=== PATIENT | female | born 1945 | race Caucasian/White ===

== ENCOUNTER 2020-02-14 13:23 | Outpatient (CLI) | payer MEDICARE, SELFPAY ==
--- NOTE | ~2020-02-14 | MM_ITS ---
CORRECTED REPORT DELMER ADDED. 02/14/20 EXAMINATION: MM screening [facility] w [facility] HISTORY: Screening TECHNIQUE: Craniocaudal and mediolateral oblique 3-D tomosynthesis images were obtained and synthetic 2-D images were generated. CAD analysis was submitted and interpreted. COMPARISON: Comparison to multiple prior studies sequentially, with oldest reviewed study dated 01/13/2015. BREAST PARENCHYMAL COMPOSITION: There are scattered areas of fibroglandular density. FINDINGS: There is no evidence of suspicious mass, calcification, or architectural distortion to suggest malignancy in either breast. There has been no suspicious interval change. IMPRESSION: 1. No mammographic evidence of malignancy. 2. Recommend routine screening mammography in one year. BI-RADS Category 1: Negative Reviewed, dictated and finalized at location A. MTDD
--- NOTE | ~2020-02-14 | DEXA_ITS ---
Bone Density Report Name: Marcela Culver Age: 74 Sex: Female Ethnicity: White Date of : 1945 Indication: postmenopausal; hysterectomy; Referring Provider: Eloise Zavala Study: Bone densitometry was performed. Exam Date: February 14, 2020 Accession number: [id number] Bone Density: Region BMD T-score Z-score Classification AP Spine (L1-L4) 1.193 1.3 3.6 Normal Femoral Neck (Left) 0.865 0.1 2.1 Normal Total Hip (Left) 1.079 1.1 2.8 Normal Total Hip Bilateral Avg 1.104 1.3 3.0 Normal Femoral Neck (Right) 0.914 0.6 2.6 Normal Total Hip (Right) 1.128 1.5 3.2 Normal World Health Organization criteria for BMD impression classify patients as: Normal (T-score at or above -1.0), Osteopenia (T-score between -1.0 and -2.5), or Osteoporosis (T-score at or below -2.5). 10-year Fracture Risk: FRAX not reported because: All T-scores for Spine Total, Hip Total, Femoral Neck at or above -1.0 Previous Exams: Region Exam Age BMD T-score BMD Change BMD Change Date g/cm2 vs Baseline vs Previous AP Spine(L1-L4) 02/14/2020 74 1.193 1.3 -0.139(-10.4%) -0.006(-0.5%) 02/05/2018 72 1.200 1.4 -0.132(-9.9%)# -0.005(-0.4%) 02/27/2015 69 1.205 1.4 -0.127(-9.6%)# -0.012(-1.0%)# 11/08/2011 65 1.217 1.5 -0.115(-8.7%)# -0.090(-6.9%)# 11/02/2009 63 1.307 2.4 -0.025(-1.9%)* -0.041(-3.0%)* 10/31/2007 61 1.348 2.7 0.016(1.2%) 0.101(8.1%)* 11/30/2004 58 1.247 1.8 -0.085(-6.4%)* -0.085(-6.4%)* 11/12/2002 56 1.332 2.6 Total Hip(Left) 02/14/2020 74 1.079 1.1 -0.099(-8.4%)# -0.034(-3.1%)* 02/05/2018 72 1.114 1.4 -0.065(-5.5%)# 0.007(0.6%) 02/27/2015 69 1.107 1.4 -0.072(-6.1%)# 0.020(1.9%)# 11/08/2011 65 1.087 1.2 -0.092(-7.8%)# -0.056(-4.9%)# 11/02/2009 63 1.143 1.6 -0.036(-3.1%)* -0.011(-0.9%) 10/31/2007 61 1.153 1.7 -0.025(-2.1%) 0.019(1.7%) 11/30/2004 58 1.134 1.6 -0.044(-3.8%)* -0.044(-3.8%)* 11/12/2002 56 1.179 1.9 Total Hip(Right) 02/14/2020 74 1.128 1.5 -0.107(-8.6%)# -0.013(-1.2%) 02/05/2018 72 1.142 1.6 -0.093(-7.5%)# 0.028(2.5%)* 02/27/2015 69 1.114 1.4 -0.121(-9.8%)# 0.022(2.0%)# 11/08/2011 65 1.092 1.2 -0.143(-11.5%) -0.113(-9.4%)# 11/02/2009 63 1.205 2.2 -0.030(-2.4%)* -0.012(-1.0%) 10/31/2007 61 1.217 2.3 -0.018(-1.4%) 0.035(3.0%)* 11/30/2004 58 1.182 2.0 -0.053(-4.3%)* -0.053(-4.3%)* 11/12/2002 56 1.235 2.4 *Denotes significance at 95% confidence level, LSC for AP Spine
== END 2020-02-14 13:24 | disposition home or self-care (01) ==
LOC: ANHIMG 13:28
PROVIDERS: PCP Family Medicine; Visit Provider Physician Assistant
DX: Z12.31 Encounter for screening mammogram for malignant neoplasm of breast (principal); Z78.0 Asymptomatic menopausal state
CPT/HCPCS: 77063; 77067; 77080

== ENCOUNTER 2020-12-22 15:41 | Outpatient (CLI) | payer MEDICARE, SELFPAY ==
--- NOTE | ~2020-12-22 | XR_ITS ---
XR knee RT 3V DATE: 12/22/2020 16:02 INDICATION: Right knee pain below patella. TECHNIQUE: 3 views right knee COMPARISON: None FINDINGS: There is mild osteoarthritis of the right knee. No fracture, subluxation or dislocation. No significant joint effusion. No foreign bodies. IMPRESSION: Mild osteoarthritis of the right knee. Reviewed, dictated and finalized at location A.
== END 2020-12-22 15:42 | disposition home or self-care (01) ==
PROVIDERS: PCP Family Medicine; Visit Provider Family Medicine
DX: M25.461 Effusion, right knee (principal); M17.11 Unilateral primary osteoarthritis, right knee
CPT/HCPCS: 73562

== ENCOUNTER 2021-03-02 13:32 | Outpatient (CLI) | payer MEDICARE, SELFPAY ==
--- NOTE | 2021-03-02 | ECG_ITS ---
Measurements Intervals [place] Rate: 66 P: 46 AR: 155 QRS: 24 QRSD: 81 T: 29 QT: 392 QTc: 413 Interpretive Statements SINUS RHYTHM INCOMPLETE RIGHT BUNDLE BRANCH BLOCK BASELINE WANDER- V4-V5 BORDERLINE ECG Electronically Signed On 03-02-2021 17:19:45 CDT by Bret Cole D.O.
[2021-03-02 14:11] LABS: Anion Gap 7 mmol/L (8-16); Blood Urea Nitrogen 16 mg/dL (7-17); Calcium 9.5 mg/dL (8.4-10.2); Carbon Dioxide 26 mmol/L (22-30); Chloride 104 mmol/L (98-107); Estimated Glomerular Filt Rate > 60; Glucose 106 mg/dL (65-110); Sodium 137 mmol/L (137-145)
== END 2021-03-02 13:33 | disposition home or self-care (01) ==
PROVIDERS: PCP Family Medicine; Visit Provider Orthopaedic Surgery
DX: Z01.818 Encounter for other preprocedural examination (principal); I45.10 Unspecified right bundle-branch block
CPT/HCPCS: 36415; 80048; 93005

== ENCOUNTER 2021-03-08 15:12 | Outpatient (CLI) | payer MEDICARE, SELFPAY ==
--- NOTE | ~2021-03-08 | MM_ITS ---
EXAMINATION: MM screening [facility] BI w lola HISTORY: Screening TECHNIQUE: Craniocaudal and mediolateral oblique 3-D tomosynthesis images were obtained and synthetic 2-D images were generated. CAD analysis was submitted and interpreted. COMPARISON: Comparison to multiple prior studies sequentially, with oldest reviewed study dated 01/18. BREAST PARENCHYMAL COMPOSITION: There are scattered areas of fibroglandular density. FINDINGS: There is no evidence of suspicious mass, calcification, or architectural distortion to sugg est malignancy in either breast. There has been no suspicious interval change. IMPRESSION: 1. No mammographic evidence of malignancy. 2. Recommend routine screening mammography in one year. BI-RADS Category 1: Negative Reviewed, dictated and finalized at location A.
== END 2021-03-08 15:13 | disposition home or self-care (01) ==
LOC: ANHIMG 15:16
PROVIDERS: PCP Family Medicine; Visit Provider Family Medicine
DX: Z12.31 Encounter for screening mammogram for malignant neoplasm of breast (principal)
CPT/HCPCS: 77063; 77067

== ENCOUNTER 2021-04-30 13:43 | Emergency (ER) | payer MEDICARE, SELFPAY ==
[2021-04-30 13:50] VITALS: BP 96/72; PULSE 78; RESP 78; TEMP 36.3; O2SAT 100
--- NOTE | 2021-04-30 13:59 | ED.EYEPROB ---
HPI - Eye Problem General Chief complaint: Eye Problems Stated complaint: STY IN R EYE Time Seen by Provider: 04/30/21 13:59 Source: patient Mode of arrival: ambulatory Limitations: no limitations History of Present Illness HPI Narrative: Marcela Culver is a 75 yo female with a PMH of hypertension hypothyroid, who comes [facility] with a stye on her right eye that started again this morning. She has an older stye on the outer canthus of the same eye that started 3 days ago and has been draining. She is current eye make-up on her eyes and she does have a cat that sheds-no eye pain no injection Related Data Home Medications Medication Instructions Recorded Confirmed calcium carbonate-vitamin D3 600 cap PO 07/30/19 03/05/21 mg calcium-200 unit capsule cholecalciferol (vitamin D3) 25 1,000 unit PO DAILY 07/30/19 04/30/21 mcg (1,000 unit) capsule Allergies Allergy/AdvReac Type Severity Reaction Status Date / Time TONO Inhibitors Allergy Unknown cough Verified 04/30/21 13:59 Review of Systems Review of Systems: CONSTITUTIONAL: Denies fever, chills, sweats. EYES: Denies visual changes, redness, discharge. Has an old and/or stye to the right upper lid ENT: Denies rhinorrhea, congestion, sore throat, otalgia. CARDIOVASCULAR: Denies chest pain, palpitations, edema. RESPIRATORY: Denies dyspnea, wheezing, cough GASTROINTESTINAL: Denies abdominal pain, nausea, vomiting, diarrhea. GENITOURINARY: Denies dysuria, hematuria, abnormal discharge SKIN: Denies rash or itching. NEUROLOGIC: Denies numbness, or focal weakness. PSYCHIATRIC: Denies anxiety or depression. [facility] Past Medical History Medical History Hypertension Hypothyroid Insomnia Seasonal allergic rhinitis Vitamin D deficiency Surgical History Surgical History History of appendectomy History of right knee surgery History of total hysterectomy Family History Family History Sibling Hypertension Family history of elevated blood lipids Father Asthma, Onset Age: 78 Family history of Parkinson's disease Mother Family history of congestive heart failure Patient's mother is in good health Social History Social History Social History: Smoking status: Never smoker Second hand tobacco smoke exposure: No Alcohol intake: never Alcohol use details: Pt does drink alcohol socially. Substance use: never Substance use type: does not use Gender identity (if verbalized by the patient): Female Sexual Orientation (if Verbalized by the Patient): Straight or Heterosexual Comments At time of signature, I agree with nursing past medical, surgical, social and family history. There is no relevant family history pertinent to the presenting complaint. Exam Narrative: GENERAL: This is a well-nourished, well-developed patient, in mild distress. HEAD: normocephalic, atraumatic. EYES: PERRL. Sclera clear/white. Vision is grossly intact. Has stye on inner and outer canthus of the right upper eyelid the one on the other is older and has been draining the 1 in the inner canthus is due this morning and has not started draining EARS: External ears normal Hearing grossly intact. NOSE: External nose normal without nasal discharge, nares without redness, no rhinorrhea. THROAT: Mucous membranes moist, NECK: Neck supple, CARDIOVASCULAR: Regular rate and rhythm without murmurs, gallops, or rubs. RESPIRATORY: Clear to auscultation. Breath sounds equal bilaterally. No wheezes, GASTROINTESTINAL: Not done SKIN: warm, intact with no suspicious lesions or rash, good texture and turgor. NEURO: awake, alert, and oriented to person, place and time. There were no obvious focal neurologic abnormalities. Steady gait EXTREMITIES:
== END 2021-04-30 14:18 | disposition home or self-care (01) ==
PROVIDERS: Emergency Provider Nurse Practitioner; PCP Family Medicine
DX: H00.011 Hordeolum externum right upper eyelid (principal); I10 Essential (primary) hypertension; E03.9 Hypothyroidism, unspecified; E55.9 Vitamin D deficiency, unspecified
CPT/HCPCS: 99213; G0463

== ENCOUNTER 2022-04-20 15:32 | Outpatient (CLI) | payer MEDICARE, SELFPAY ==
--- NOTE | ~2022-04-20 | DEXA_ITS ---
Bone Density Report Name: DWAYNE THOMPSON Age: 76 Sex: Female Ethnicity: White Date of : 1945 Indication: postmenopausal; screening for osteoporosis; height loss; hysterectomy; Referring Provider: TRISHA CARIAS Study: Bone densitometry was performed. Exam Date: April 20, 2022 Accession number: [id number] Bone Density: Region BMD T-score Z-score Classification AP Spine(L1-L4) 1.188 1.3 3.7 Normal Femoral Neck (Left) 0.855 0.1 2.2 Normal Total Hip (Left) 1.054 0.9 2.7 Normal Femoral Neck (Right) 0.922 0.7 2.8 Normal Total Hip (Right) 1.115 1.4 3.2 Normal Total Hip Mean 1.085 1.2 3.0 Normal World Health Organization criteria for BMD impression classify patients as: Normal (T-score at or above -1.0), Osteopenia (T-score between -1.0 and -2.5), or Osteoporosis (T-score at or below -2.5). 10-year Fracture Risk: FRAX not reported because: All T-scores for Spine Total, Hip Total, Femoral Neck at or above -1.0 Previous Exams: Region Exam Age BMD T-score BMD Change BMD Change Date g/cm2 vs Baseline vs Previous Total Hip(Left) 04/20/2022 76 1.054 0.9 -0.033 (-3.0%) -0.025 (-2.3%) 02/14/2020 74 1.079 1.1 -0.007 (-0.7%) -0.034 (-3.1%) 02/05/2018 72 1.114 1.4 0.027 (2.5%)# 0.007 (0.6%) 02/27/2015 69 1.107 1.4 0.020 (1.9%)# 0.020 (1.9%)# 11/08/2011 65 1.087 1.2 Total Hip(Right) 04/20/2022 76 1.115 1.4 0.023 (2.1%)# -0.013 (-1.2%) 02/14/2020 74 1.128 1.5 0.036 (3.3%)# -0.013 (-1.2%) 02/05/2018 72 1.142 1.6 0.050 (4.5%)# 0.028 (2.5%)* 02/27/2015 69 1.114 1.4 0.022 (2.0%)# 0.022 (2.0%)# 11/08/2011 65 1.092 1.2 *Denotes significance at 95% confidence level, LSC for Total Hip = 0.027 g/cm2 # Denotes dissimilar scan types or analysis methods Clinical Information Provided by Patient: Has used the following medications: Calcium Has the following medical conditions: Hysterectomy, hypothyroid Patient maximum height was 64 Drinks caffeinated beverages Onset of menses at age 16 Number of children 1 Impression: The patient has normal bone mass. No significant bone loss was observed. Discussion: LOW RISK OF FRACTURE; BONE DENSITY IS WELL ABOVE THE MINIMUM DESIRABLE LEVEL AND ABOVE AVERAGE FOR AGE AND SEX AT ALL SKELETAL SITES TESTED. This person's bone density is above expected limits for age and sex. This is rarely clinically significant, but should be pursued if there are signi
--- NOTE | ~2022-04-20 | MM_ITS ---
EXAMINATION: MM screening [facility] BI w lola HISTORY: Screening TECHNIQUE: Craniocaudal and mediolateral oblique 3-D tomosynthesis images were obtained and synthetic 2-D images were generated. CAD analysis was submitted and interpreted. COMPARISON: Comparison to multiple prior studies sequentially, with oldest reviewed study dated 01/23. BREAST PARENCHYMAL COMPOSITION: There are scattered areas of fibroglandular density. FINDINGS: There is no evidence of suspicious mass, calcification, or architectural distortion to sugg est malignancy in either breast. There has been no suspicious interval change. IMPRESSION: 1. No mammographic evidence of malignancy. 2. Recommend routine screening mammography in one year. BI-RADS Category 1: Negative Reviewed, dictated and finalized at location A.
== END 2022-04-20 15:33 | disposition home or self-care (01) ==
LOC: ANHIMG 15:33
PROVIDERS: PCP Family Medicine; Visit Provider Family Medicine
DX: Z12.31 Encounter for screening mammogram for malignant neoplasm of breast (principal); Z78.0 Asymptomatic menopausal state
CPT/HCPCS: 77063; 77067; 77080

== ENCOUNTER 2023-08-10 13:17 | Outpatient (CLI) | payer MEDICARE, SELFPAY ==
--- NOTE | ~2023-08-10 | MM_ITS ---
EXAMINATION: MM screening [facility] BI w lola HISTORY: Screening TECHNIQUE: Craniocaudal and mediolateral oblique 3-D tomosynthesis images were obtained and synthetic 2-D images were generated. CAD analysis was submitted and interpreted. COMPARISON: 01/25/2018 BREAST PARENCHYMAL COMPOSITION: Dense: The breasts are heterogeneously dense, which may obscure small masses FINDINGS: There is no evidence of suspicious mass, calcification, or architectural distortion to sugg est malignancy in either breast. There has been no suspicious interval change. IMPRESSION: 1. No mammographic evidence of malignancy. 2. Recommend routine screening mammography in one year. BI-RADS Category 1: Negative Reviewed, dictated and finalized at location A. INSURANCE UNDERWRITER
== END 2023-08-10 13:18 | disposition home or self-care (01) ==
PROVIDERS: PCP Family Medicine; Visit Provider Family Medicine
DX: Z12.31 Encounter for screening mammogram for malignant neoplasm of breast (principal)
CPT/HCPCS: 77063; 77067

== ENCOUNTER 2024-12-30 14:57 | Outpatient (CLI) | payer MEDICARE, SELFPAY ==
--- NOTE | ~2024-12-30 | DEXA_ITS ---
Bone Density Report Name: DWAYNE THOMPSON Age: 79 Sex: Female Ethnicity: White Date of : 1945 Indication: postmenopausal; screening for osteoporosis; height loss; hysterectomy; Referring Provider: WILIAN HANSEN Study: Bone densitometry was performed. Exam Date: December 30, 2024 Accession number: [id number] Bone Density: Region BMD T-score Z-score Classification AP Spine(L1-L4) 1.168 1.1 3.7 Normal Femoral Neck (Left) 0.820 -0.3 2.0 Normal Total Hip (Left) 1.100 1.3 3.2 Normal Femoral Neck (Right) 0.895 0.4 2.6 Normal Total Hip (Right) 1.118 1.4 3.4 Normal Total Hip Mean 1.109 1.4 3.3 Normal World Health Organization criteria for BMD impression classify patients as: Normal (T-score at or above -1.0), Osteopenia (T-score between -1.0 and -2.5), or Osteoporosis (T-score at or below -2.5). 10-year Fracture Risk: FRAX not reported because: All T-scores for Spine Total, Hip Total, Femoral Neck at or above -1.0 Previous Exams: Region Exam Age BMD T-score BMD Change BMD Change Date g/cm2 vs Baseline vs Previous AP Spine (L1-L4) 12/30/2024 79 1.168 1.1 -0.049 (-4.0%) -0.020 (-1.7%) 04/20/2022 76 1.188 1.3 -0.029 (-2.4%) -0.005 (-0.5%) 02/14/2020 74 1.193 1.3 -0.024 (-1.9%) -0.006 (-0.5%) 02/05/2018 72 1.200 1.4 -0.017 (-1.4%) -0.005 (-0.4%) 02/27/2015 69 1.205 1.4 -0.012 (-1.0%) -0.012 (-1.0%) 11/08/2011 65 1.217 1.5 Total Hip(Left) 12/30/2024 79 1.100 1.3 0.013 (1.2%)# 0.046 (4.3%)* 04/20/2022 76 1.054 0.9 -0.033 (-3.0%) -0.025 (-2.3%) 02/14/2020 74 1.079 1.1 -0.007 (-0.7%) -0.034 (-3.1%) 02/05/2018 72 1.114 1.4 0.027 (2.5%)# 0.007 (0.6%) 02/27/2015 69 1.107 1.4 0.020 (1.9%)# 0.020 (1.9%)# 11/08/2011 65 1.087 1.2 Total Hip(Right) 12/30/2024 79 1.118 1.4 0.026 (2.4%)# 0.003 (0.3%) 04/20/2022 76 1.115 1.4 0.023 (2.1%)# -0.013 (-1.2%) 02/14/2020 74 1.128 1.5 0.036 (3.3%)# -0.013 (-1.2%) 02/05/2018 72 1.142 1.6 0.050 (4.5%)# 0.028 (2.5%)* 02/27/2015 69 1.114 1.4 0.022 (2.0%)# 0.022 (2.0%)# 11/08/2011 65 1.092 1.2 *Denotes significance at 95% confidence level, LSC for AP Spine = 0.022 g/cm2, LSC for Total Hip = 0.027 g/cm2 # Denotes dissimilar scan types or analysis methods Clinical Information Provided by Patient: Has used the following medications: Vitamin D, Calcium Has the following medical conditions: Hysterectomy, hypothyroid Patient maximum height was 64 Drinks caffeinated beverages Onset of menses at age 16 Number of children 1 Impression: The patient has normal bone mass. No significant bone loss was observed. Discussion: BONE DENSITY IS ABOVE THE MINIMUM DESIRABLE LEVEL AT ALL SKELETAL SITES TESTED. This patient?s bone mineral density is above the minimum desirable level (T-score -1.0 or better) at all sites measured. The patient should follow a healthful lifestyle (good nutrition with adequate calcium and vitamin D, and appropriate weight-bearing exercise). Follow-Up: Consider repeating this study in 5 years or sooner if there is some new clinical indication. Reported by: ROXI on 12/30/2024 3:38:00 PM. Reviewed, dictated and finalized at location A.
--- NOTE | ~2024-12-30 | MM_ITS ---
EXAMINATION: MM screening [facility] BI w lola HISTORY: Screening mammogram TECHNIQUE: Craniocaudal and mediolateral oblique 3-D tomosynthesis images were obtained and synthetic 2-D images were generated. CAD analysis was submitted and interpreted. COMPARISON: 08/10/2023, 04/20/2022, 03/08/2021 BREAST PARENCHYMAL COMPOSITION:Not Dense. There are scattered areas of fibroglandular density. FINDINGS: No suspicious mass, calcification, or architectural distortion are identified in either renee ast to suggest malignancy. There has been no suspicious interval change. IMPRESSION: No mammographic evidence of malignancy. Recommend routine screening mammography in one year. BI-RADS Category 1: Negative Reviewed, dictated and finalized at location .
== END 2024-12-30 14:58 | disposition home or self-care (01) ==
PROVIDERS: PCP Family Medicine; Visit Provider Physician Assistant
DX: Z12.31 Encounter for screening mammogram for malignant neoplasm of breast (principal); Z78.0 Asymptomatic menopausal state
CPT/HCPCS: 77063; 77067; 77080